=== PATIENT | male | born 1950 | race Caucasian/White ===

== ENCOUNTER 2016-09-16 03:33 | Emergency (ER) | payer MEDICARE, OTHER ==
[2016-09-16 03:51] VITALS: BP 129/81; PULSE 77; RESP 18; TEMP 97.7; O2SAT 99
--- NOTE | 2016-09-16 04:38 | ED PDOC ---
HPI: Psych/Substance Abuse Time Seen by Provider: 09/16/16 03:53 Chief Complaint (Nursing): Psychiatric Evaluation History Per: Patient, Ophthalmic Medical Technologist (Pedro - Debo) Additional Complaint(s): Pt. states he's lost interest in living. Reports he's been feeling like this for 1 month. States he was recently kicked out of his residential and does not have a place to stay. Further states that he has had an inguinal hernia for the past 3 years. Pt. reports no pain or change in size of hernia. Denies HI, hallucinations, N/V/D, diarrhea, cough, congestion. Last BM was today and was normal. Past Medical History Reviewed: Historical Data, Nursing Documentation, Vital Signs Vital Signs: Last Vital Signs Temp 97.7 F 09/16/16 03:47 Pulse 77 09/16/16 03:47 Resp 18 09/16/16 03:47 BP 129/81 09/16/16 03:47 Pulse Ox 99 09/16/16 03:47 - Medical History PMH: Anxiety, Asthma, Depression Denies: Arthritis, Diabetes, Gastritis, Hepatitis, HIV, HTN, Chronic Kidney Disease, Seizures, Sexually Transmitted Disease - Surgical History Surgical History: Appendectomy (1979) - Family History Family History: States: No Known Family Hx - Immunization History Hx Tetanus Toxoid Vaccination: No Hx Influenza Vaccination: No Hx Pneumococcal Vaccination: No - Home Medications Home Medications: Ambulatory Orders Medication Instructions Recorded No Known Home Med 09/08/16 - Allergies Allergies/Adverse Reactions: Allergies Allergy/AdvReac Type Severity Reaction Status Date / Time No Known Allergies Allergy Verified 09/08/16 19:29 Review of Systems ROS Statement: Except As Marked, All Systems Reviewed And Found Negative Psych: Positive for: Depression Physical Exam - Reviewed Nursing Documentation Reviewed: Yes Vital Signs Reviewed: Yes - Physical Exam Appears: Positive for: Well, Non-toxic, No Acute Distress Head Exam: Positive for: ATRAUMATIC, NORMAL INSPECTION, NORMOCEPHALIC Skin: Positive for: Normal Color, Warm. Negative for: Rash Eye Exam: Positive for: Normal appearance, EOMI, PERRL ENT: Positive for: Normal ENT Inspection Neck: Positive for: Normal, Painless ROM Cardiovascular/Chest: Positive for: Regular Rate, Rhythm Respiratory: Positive for: CNT, Normal Breath Sounds Gastrointestinal/Abdominal: Positive for: Normal Exam, Soft. Negative for: Tenderness, Distended Male Genital Exam: Negative for: no hernia (L inguinal hernia which is non- tender and without ecchymosis (as per patient this hernia has been the same size for 3 years)), bleeding, epididymal tenderness, erythema, high riding prostate, inguinal tenderness, lesions, scrotum tenderness (R), scrotum tenderness (L), testicular tenderness (R), testicular tenderness (L), urethral discharge Back: Positive for: Normal Inspection. Negative for: L CVA Tenderness, R CVA Tenderness Extremity: Positive for: Normal ROM Neurologic/Psych: Positive for: Alert, Oriented - ECG O2 Sat by Pulse Oximetry: 99 - Progress ED Course And Treament: Pt. evaluated by Sherri guerrier. Pt. told billet worker he is not suicidal and does not have a plan to hurt himself. Pt. was offered different residential information but refused as he states "i've been to all of them and i only like the one in [place] but they kicked me out." Disposition - Clinical Impression Clinical Impression: Inguinal hernia - Disposition Referrals: LTAC, [facility] within [facility] [Outside] Disposition: Routine/Home Disposition Time: 04:45 Condition: STABLE Instructions: Inguinal Hernia (ED) Print Language: CAMBODIAN
== END 2016-09-16 04:56 | disposition home or self-care (01) ==
LOC: H.ER 03:33
DX: K40.90 Unilateral inguinal hernia, without obstruction or gangrene, not specified as recurrent (principal); F41.9 Anxiety disorder, unspecified; J45.909 Unspecified asthma, uncomplicated

== ENCOUNTER 2016-12-27 19:02 | Inpatient (IN) | payer MEDICARE, MEDICAID ==
[2016-12-27] MEDS ORDERED: Promethazine/Cod 6.25mg-10mg/5ml Syr UD PO STA (20:42)
--- NOTE | 2016-12-27 21:28 | ED PDOC ---
HPI: Psych/Substance Abuse Time Seen by Provider: 12/27/16 19:56 Chief Complaint (Nursing): Cough, Cold, Congestion Chief Complaint (Provider): Depression and cough History Per: Patient History/Exam Limitations: no limitations Additional Complaint(s): Patient is a 66 y/o male with a past medical history of depression who was brought to the emergency department by EMS for a psych evaluation. Also complains of runny nose ongoing for several days and a dry cough ongoing for several hours. Denies chest pain, difficulty breathing, leg swelling, suicidal or homicidal ideation. PCP: none provided. Past Medical History Reviewed: Historical Data, Nursing Documentation, Vital Signs Vital Signs: Last Vital Signs Temp 98.1 F 12/27/16 19:31 Pulse 104 H 12/27/16 19:31 Resp 18 12/27/16 19:31 BP 114/79 12/27/16 19:31 Pulse Ox 99 12/27/16 19:31 - Medical History PMH: Anxiety, Asthma, Depression Denies: Arthritis, Diabetes, Gastritis, Hepatitis, HIV, HTN, Chronic Kidney Disease, Seizures, Sexually Transmitted Disease - Surgical History Surgical History: Appendectomy (1979), Hernia Repair (inguinal hernia) - Family History Family History: States: Unknown Family Hx - Social History Current smoker - smoking cessation education provided: No Ex-Smoker (has not smoked in the last 12 months): Yes Alcohol: Other (quit 1 month ago) Drugs: Denies - Immunization History Hx Tetanus Toxoid Vaccination: No Hx Influenza Vaccination: No Hx Pneumococcal Vaccination: No - Home Medications Home Medications: Ambulatory Orders Medication Instructions Recorded Albuterol/Ipratropium [Combivent 1 puff IH Q4 09/18/16 Respimat] - Allergies Allergies/Adverse Reactions: Allergies Allergy/AdvReac Type Severity Reaction Status Date / Time No Known Allergies Allergy Verified 12/27/16 19:33 Review of Systems ROS Statement: Except As Marked, All Systems Reviewed And Found Negative Cardiovascular: Negative for: Chest Pain Respiratory: Positive for: Cough (dry, several hours), Other (rhinorrhea for a couple of days). Negative for: Shortness of Breath Musculoskeletal: Negative for: Other (leg swelling) Psych: Positive for: Depression. Negative for: Suicidal ideation (or homicidal ideation) Physical Exam - Reviewed Nursing Documentation Reviewed: Yes Vital Signs Reviewed: Yes - Physical Exam Appears: Positive for: Non-toxic, No Acute Distress Head Exam: Positive for: ATRAUMATIC, NORMAL INSPECTION, NORMOCEPHALIC Skin: Positive for: Normal Color, Warm, Dry Eye Exam: Positive for: EOMI, Normal appearance, PERRL ENT: Positive for: Normal ENT Inspection Neck: Positive for: Normal, Painless ROM, Supple Cardiovascular/Chest: Positive for: Regular Rate, Rhythm. Negative for: Murmur Respiratory: Positive for: Normal Breath Sounds. Negative for: Accessory Muscle Use, Respiratory Distress Gastrointestinal/Abdominal: Positive for: Normal Exam, Soft. Negative for: Tenderness Back: Positive for: Normal Inspection Extremity: Positive for: Normal ROM. Negative for: Pedal Edema Neurologic/Psych: Positive for: Alert, Oriented (x3) - Laboratory Results Result Diagrams: 12/27/16 23:12 12/27/16 23:12 - ECG ECG: Positive for: Interpreted By Me, Viewed By Me ECG Rhythm: Positive for: Normal QRS, Normal ST Segment, Sinus Rhythm. Negative for: ST/T Changes Rate: 71 O2 Sat by Pulse Oximetry: 99 (RA) Pulse Ox Interpretation: Normal - Radiology X-Ray: Interpreted by Me, Viewed By Me X-Ray Interpretation: No Acute Disease Medical Decision Making Medical Decision Making: Time: 20:41 Initial plan: Crisis Evaluation Chest X-Ray Phenergan/Codeine 5 ml PO Reevaluation Vital signs are stable. Labs reviewed. In my opinion there are no current acute medical conditions that contraindicate the placement of this patient in a psychiatric unit. 23:59: Patient pending crisis evaluation for psychiatric unit placement. Care transferred to Dr. Orellana. Scribe Attestation: Documented by Bren Deras, acting as a scribe for Obdulio Vega MD. Provider Scribe Attestation: All medical record entries made by the Scribe were at my direction and personally dictated by me. I have reviewed the chart and agree that the record accurately reflects my personal performance of the history, physical exam, medical decision making, and the department course for this patient. I have also personally directed, reviewed, and agree with the discharge instructions and disposition. Disposition - Clinical Impression Clinical Impression: Depression - Patient ED Disposition Is Patient to be Admitted: Transfer of Care Counseled Patient/Family Regarding: Studies Performed, Diagnosis - Disposition Disposition: Transfer of Care Disposition Time: 00:00 Condition: FAIR
[2016-12-27 23:20] LABS: BASO # 0.1 K/uL (0.0-0.2); BASO % 0.8 % (0.0-2.0); EOS # 0.1 K/uL (0.0-0.7); EOS % 1.6 % (0.0-4.0); LYMPH % 11.4 % (20.0-40.0); MEAN CELL VOLUME 84.4 fl (80.0-94.0); MEAN CORPUSCULAR HEMOGLOBIN 27.3 pg (27.0-31.0); MEAN CORPUSCULAR HGB CONC 32.3 g/dL (33.0-37.0); MEAN PLATELET VOLUME 8.9 fl (7.2-11.7); MONO # 0.8 K/uL (0.0-0.8); MONO % 8.5 % (0.0-10.0); NEUT # 6.9 K/uL (1.8-7.0); NEUT % 77.7 % (50.0-75.0); NRBC % 0.1 % (0.0-0.0); RED CELL DISTRIBUTION WIDTH 13.6 % (11.5-14.5); WHITE BLOOD COUNT 8.9 K/uL (4.8-10.8)
[2016-12-27 23:32] LABS: ALCOHOL SERUM < 10 mg/dl (0-10); BLOOD UREA NITROGEN 27 mg/dl (9-20); CARBON DIOXIDE 27 mmol/L (22-30); CHLORIDE 104 mmol/L (98-107); GFR AFRICAN-AMERICAN > 60; GLUCOSE,RANDOM 90 mg/dL (75-110); POTASSIUM 4.4 MMOL/L (3.6-5.0); SODIUM 138 mmol/l (132-148)
--- NOTE | 2016-12-28 00:10 | ED PDOC ---
- Laboratory Results Result Diagrams: 12/27/16 23:12 12/27/16 23:12 - ECG O2 Sat by Pulse Oximetry: 99 (RA) Medical Decision Making Medical Decision Making: Transfer of care for pending crisis evaluation. Records reviewed. 00:09: Crisis evaluated patient and he will be admitted psychiatrically. Scribe Attestation Documented by Edwina Deras acting as a scribe for Arnie Orellana MD. Provider Attestation: All medical record entries made by the Scribe were at my direction and personally dictated by me. I have reviewed the chart and agree that the record accurately reflects my personal performance of the history, physical exam, medical decision making, and the department course for this patient. I have also personally directed, reviewed, and agree with the discharge instructions and disposition. Disposition - Clinical Impression Clinical Impression: Depression - POA Present On Arrival: None - Disposition Disposition: Admitted as In-Patient Disposition Time: 00:00 Condition: FAIR
[2016-12-28] MEDS ORDERED: Bismuth Subsalicylate 262 mg/15 ml Sus (240 ml) PO PRN (01:27)
[2016-12-28] MEDS ORDERED: Magnesium Hydroxide Susp 30 ml UD PO PRN (01:27)
[2016-12-28] MEDS ORDERED: Alum-Mag Hydrox-Simethicone Susp (30 mL) PO PRN (01:27)
--- NOTE | 2016-12-28 01:38 | PCM.BM ---
<Veronica Thacker - Last Filed: 12/28/16 01:36> Treatment Plan Problems - Problems identified on initial assessmt Hopelessness/helplessness Date Initiated: 12/28/16 Time Initiated: 01:36 Assessment reference: NA Status: Active altered sleep pattern Date Initiated: 12/28/16 Time Initiated: 01:37 Assessment reference: NA Treatment assets and liabiliti Patient Assests: adapts well, cooperative, ADL independent, negotiates basic needs, cognitively intact Patient Liabilities: live alone, financial problems, poor support system, substance abuse - Milieu Protocol Maintain good personal hygiene: daily Encourage regular showers, daily Remind patient to perform daily oral care, other Assist patient to perform ADL's (prn) Conduct patient checks and document Observation sheet: Q15 minutes Maintain personal safety: every shift Educate patient to report safety concerns to staff, every shift Monitor environment for contraband/sharps Medication safety: Monitor for expected outcome, potential side effects: every shift, Assess barriers to learning: every shift, Assess readiness for medication education: every shift Family Contact Family involvement: Famliy/SO not involved <[place]lim[place]ia [place] - Last Filed: 12/30/16 09:20> - Diagnosis (1) Depression Status: Acute Interventions: Individual and group therapy, Medication management, Psychoeducation 12/30/16 09:20 <Sury Desai - Last Filed: 12/30/16 10:55> Family Contact - Goals for Treatment Patient goals for treatment: Pt stated "I'm depressed and alot of anxiety, you know." Discharge/Continuing Care - Education Needs Education Needs: Patient Medication, Patient Diagnosis/Disease Process, Patient Coping Skills, Patient Community resources, Patient Personal Hygiene/Grooming, Patient Aftercare Safety Plan - Discharge Discharge Criteria: Free of Suicidal thoughts, Free of agitation, Normal sleep pattern, Ability to care for self, Reduction of target symptoms Discharge to:: Home, Other (Local Nursing Home Facilities) - Additional Comments 12/30/16 10:51 Pt seen and discussed and team meeting. Reason for admission discussed. Pt reported feelings of depression and anxiety and loneliness. Pt reported he is homeless and has been living on the streets. Different shelters in [place] and [facility] discussed pt stated "I rather live on the streets than in [place] shelters they are like ." Pt reported being homeless for 1 1/2 years. Pt reported no hx of prior psychiatric services. Pt reported that he is here for medical attention; pt stated "I have too much phlegm and i cant be on the streets." Tx plan discussed and reviewed with pt. Pt agreeable. Pt's medications reviewed and discussed. Pt agreeable. - Treatment Team Participation Discussed with Family/SO: No Was Patient/Family/SO present at Treatment Team Meeting: Yes
--- NOTE | 2016-12-28 08:46 | RAD ---
HISTORY: COMPARISON: No prior. TECHNIQUE: Chest PA and lateral FINDINGS: LINES AND TUBES: None. LUNG AND PLEURA: The lungs are hyperinflated and there is peribronchial thickening with chronic changes in both lungs. No focal consolidation. HEART AND MEDIASTINUM: The heart is not enlarged. The hilar and mediastinal contours are within normal limits. SKELETAL STRUCTURES: The bony structures are within normal limits for the patient's age. VISUALIZED UPPER ABDOMEN: Normal. OTHER FINDINGS: None. IMPRESSION: No active pulmonary disease. COPD.
[2016-12-28] MEDS ORDERED: Pneumococcal 23-Valent Vaccine IM ONE (10:00)
--- NOTE | 2016-12-28 12:27 | CP.PCM.CON ---
History of Present Illness - History of Present Illness History of Present Illness: Reason for Consult: per hospital protocol CC: depression HPI 66 year undomiciled old male no past medical history admitted to psych for depression. Also complains of cough and phlegm, would like his inhaler. HD STABLE, NAD. ROS: per HPI, 12 systems reviewed and negative PMH: denies PSH: denies FH: denies SH: denies tobacco, ETOH, IVDU Meds: as below Allergies: NKDA Vitals: reviewed and currently stable Exam: GEN: WDWN, alert, cooperative HEENT: NCAT, PERRL, EOMI NECK: supple, no JVD, no lymphadenopathy CARDIAC: +S1S2 RRR LUNG: CTAB No WRR ABD: SOFT NT ND BSX4 NO MASSES NO HSM EXT: +pedal pulses, equal strength NEURO: AAOx3 SKIN warm, dry PSYCH normal mood, normal affect Labs: 12/27/16 23:12 12/27/16 23:12 Assessment and Plan: Depression Management per Psychiatry Team Past Patient History - Infectious Disease Hx of Infectious Diseases: None - Past Social History Alcohol: Other (quit 1 month ago) Drugs: Denies - CARDIAC Hx Cardiac Disorders: No Hx Angina: No Hx Atrial Fibrillation: No Hx Cardia Arrhythmia: No Hx Circulatory Problems: No Hx Congestive Heart Failure: No Hx Heart Attack: No Hx Heart Murmur: No Hx Heart Transplant: No Hx Hypercholesterolemia: No Hx Hypertension: No Hx Hypotension: No Hx Internal Defibrillator: No Hx Mitral Valve Prolapse: No Hx Pacemaker: No Hx Peripheral Edema: No Hx Peripheral Vascular Disease: No - PULMONARY Hx Respiratory Disorders: Yes Hx Asthma: Yes Hx Bronchitis: No Hx Chronic Obstructive Pulmonary Disease (COPD): No Hx Emphysema: No Hx Lung Cancer: No Hx Pneumonia: No Hx Pulmonary Edema: No Hx Pulmonary Embolism: No Hx Respiratory Aspiration: No Hx Respiratory Tract Infection: No Hx Sleep Apnea: No Hx Tuberculosis: No - NEUROLOGICAL Hx Neurological Disorder: No Hx Alzheimer's Disease: No HX Cerebrovascular Accident: No Hx Dementia: No Hx Dizziness: No Hx Meningitis: No Hx Migraine: No Hx Multiple Sclerosis: No Hx Paralysis: No Hx Parkinson's Disease: No Hx Seizures: No Hx Syncope: No Hx Transient Ischemic Attacks (TIA): No Hx Vertigo: No - HEENT Hx HEENT Problems: No Hx Cataracts: No Hx Deafness: No Hx Difficulty Chewing: No Hx Epistaxis: No Hx Glaucoma: No Hx Macular Degeneration: No Hx Sinusitis: No Other/Comment: wears corrective eye wear - RENAL Hx Chronic Kidney Disease: No Hx Dialysis: No Hx Kidney Stones: No Hx Neurogenic Bladder: No Hx Pyelonephritis: No Hx Renal (Kidney) Cancer: No Hx Renal Failure: No - ENDOCRINE/METABOLIC Hx Endocrine Disorders: No Hx Adrenal Cancer: No Hx Diabetes Insipidus: No Hx Diabetes Mellitus Type 1: No Hx Diabetes Mellitus Type 2: No Hx Hyperthyroidism: No Hx Hypothyroidism: No Hx Systemic Lupus Erythematosus: No - HEMATOLOGICAL/ONCOLOGICAL Hx Blood Disorders: No Hx AIDS: No Hx Anemia: No Hx Blood Transfusions: No Hx Blood Transfusion Reaction: No Hx Bruising: No Hx Cancer: No Hx Chemotherapy: No Hx Cirrhosis: No Hx Gum Bleeding: No Hx Hemophilia: No Hx Hepatitis A: No Hx Hepatitis B: No Hx Hepatitis C: No Hx Human Immunodeficiency Virus (HIV): No Hx Leukemia: No Hx Metastesis: No Hx Shingles: No Hx Sickle Cell Disease: No Hx Unexplained Bleeding: No Hx von Willebrand's Disease: No - INTEGUMENTARY Hx Dermatological Problems: No Hx Basil Cell: No Hx Allen: No Hx Cellulitis: No Hx Eczema: No Hx Melanoma: No Hx Psoriasis: No Hx Squamous Cell: No - MUSCULOSKELETAL/RHEUMATOLOGICAL Hx Musculoskeletal Disorders: No Hx Arthritis: No Hx Back Pain: No Hx Degenerative Joint Disease: No Hx Falls: No Hx Fractures: No Hx Gout: No Hx Herniated Disk: No Hx Myasthenia Gravis: No Hx Osteoarthritis: No Hx Osteomyelitis: No Hx Osteoporosis: No Hx Rhabdomyolysis: No Hx Rheumatoid Arthritis: No Hx Spinal Stenosis: No Hx Unsteady Gait: No - GASTROINTESTINAL Hx Gastrointestinal Disorders: No Hx Bowel Surgery: No Hx Clostridium Difficile: No Hx Colitis: No Hx Colostomy: No Hx Constipation: No Hx Crohn's Disease: No Hx Diarrhea: No Hx Diverticulitis: No Hx Esophageal Varices: No Hx Fatty Liver Disease: No Hx Gall Bladder Disease: No Hx Gastritis: No Hx Gastroesophageal Reflux: No Hx Hemorrhoids: No Hx Ileostomy: No Hx Irritable Bowel: No Hx Liver Failure: No Hx Nausea: No Hx Pancreatitis: No HX Swallowing Problems: No Hx Ulcer: No Hx Vomiting: No - GENITOURINARY/GYNECOLOGICAL Hx Genitourinary Disorders: No Hx Bladder Cancer: No Hx Bladder Stone: No Hx Hematuria: No Hx Incontinence: No Hx Prostate Cancer: No Hx Prostate Problems: No Hx Reproductive Disorders: No Hx Sexually Transmitted Disorders: No Hx Urinary Tract Infection: No - PSYCHIATRIC Hx Psychophysiologic Disorder: No Hx Anxiety: No Hx Bipolar Disorder: No Hx Depression: Yes Hx Emotional Abuse: No Hx Physical Abuse: No Hx Schizophrenia: No Hx Sexual Abuse: No Hx Substance Use: Yes (cannabis) - SURGICAL HISTORY Hx Surgeries: No Hx Abdominal Aortic Aneurysm Repair: No Hx Amputation: No Hx Angiogram: No Hx Angioplasty: No Hx Appendectomy: Yes (1979) Hx Arteriovenous Shunt: No Hx Arthroscopy: No Hx Bile Duct Stent: No Hx Breast Biopsy: No Hx Cataract Extraction: No Hx Cardiac Catheterization: No Hx Carotid Endarterectomy: No Hx Section: No Hx Cholecystectomy: No Hx Coronary Artery Bypass Graft: No Hx Coronary Stent: No Hx Dilation and Curettage: No Hx Eye Surgery: No Hx Femoral-Popliteal Bypass Graft: No Hx Gastric Bypass Surgery: No Hx Herniorrhaphy: No Hx Hysterectomy: No Hx Joint Replacement: No Hx Kidney Transplant: No Hx Liver Transplant: No Hx Mastectomy: No Hx Musculoskeletal Surgery: No Hx Open Heart Surgery: No Hx Open Reduction Internal Fixation: No Hx Orthopedic Surgery: No Hx Parathyroidectomy: No Hx Penile Implant: No Hx Pulmonary Surgery: No Hx Splenectomy: No Hx Thyroidectomy: No Hx Tonsillectomy: No Hx Tubal Ligation: No Hx Valve Replacement: No Hx Vascular Surgery: No Hx Vascular Access Device: No - ANESTHESIA Hx Anesthesia: No Hx Anesthesia Reactions: No Hx Malignant Hyperthermia: No Has any member of the family had a problem w/ anesthesia?: No Meds Allergies/Adverse Reactions: Allergies Allergy/AdvReac Type Severity Reaction Status Date / Time No Known Allergies Allergy Verified 12/27/16 19:33 - Medications Medications: Current Medications Acetaminophen (Tylenol 325mg Tab) 650 mg PO Q4 PRN PRN Reason: Pain, moderate (4-7) Al Hydrox/Mg Hydrox/Simethicone (Maalox Plus 30 Ml) 30 ml PO Q4 PRN PRN Reason: Dyspepsia Bismuth Subsalicylate (Pepto-Bismol) 524 mg PO Q4 PRN PRN Reason: Diarrhea Home Med (Albuterol/Ipratropium [Combivent Respimat]) 1 puff IH Q4 SHLOMO Lorazepam (Ativan) 0.5 mg PO HS PRN PRN Reason: Insomnia Stop: 01/11/17 01:28 Lorazepam (Ativan) 0.5 mg PO Q6 PRN PRN Reason: Anixety/Agitation Stop: 01/11/17 01:28 Magnesium Hydroxide (Milk Of Magnesia) 30 ml PO HS PRN PRN Reason: Constipation Results - Vital Signs Recent Vital Signs: Last Vital Signs Temp 97.9 F 12/28/16 06:00 Pulse 66 12/28/16 06:00 Resp 18 12/28/16 06:00 BP 101/72 12/28/16 06:00 Pulse Ox 100 12/28/16 00:34 - Labs Result Diagrams: 12/27/16 23:12 12/27/16 23:12
[2016-12-28] MEDS ORDERED: Albuterol HFA 90 mcg/actuation (8 g) INH PRN (13:15)
[2016-12-28] MEDS: Patient's Own Med (Albuterol/Ipratropium [Combivent Respimat] 1 PUFF) IH SCH ×4 (14:02→21:08)
--- NOTE | 2016-12-28 14:26 | PCM.PSYCH ---
Initial Psychiatric Evaluation - Initial Psychiatric Evaluation Chief Complaint (in patient's own words): came to emergency was feeling depressed and was thinking about my life Patient's Reaction to Hospitalization: verbally agreeable to plan to be admitted and remain on voluntary basis History of Present Illness and Precipitating Events: pt was admitted to 3ns from ER at [facility] after presenting by ems for evaluation of depressed mood and suicidal ideations. Reports that was feeling overwhelmed thought that he did not have anything to live for and was afraid that if he were not to be admitted that he would take his life. Pt reports he came to [facility] from [place] two years ago because "there are better programs her and disability". Reports has been staying in various shelters ([place] or [place]), has no support, denies previous psychiatric treatment. Reports that drinks beer once in "a while", denies having drinking problem or using drugs. Reports has smoked for many years and sees Dr. Harley ([address] in [place]) for pulmonology and "uses combivent" for COPD. Reports having "nasal congestion and cold for several days". Denies fevers chills sweats or notable weight. Smokes 1 pk day for many years. Current Medications: Active Medications Generic Name Dose Route Start Last Admin Trade Name Freq PRN Reason Stop Dose Admin Acetaminophen 650 mg 12/28/16 01:27 Tylenol 325mg Tab PO Q4 PRN Pain, moderate (4-7) Al Hydrox/Mg Hydrox/Simethicone 30 ml 12/28/16 01:27 Maalox Plus 30 Ml PO Q4 PRN Dyspepsia Albuterol 2 puff 12/28/16 13:15 Ventolin Hfa 90 Mcg/Actuation (8 G) INH RQ4 PRN Shortness of Breath Bismuth Subsalicylate 524 mg 12/28/16 01:27 Pepto-Bismol PO Q4 PRN Diarrhea Home Med 1 puff 12/28/16 13:00 12/28/16 14:02 Albuterol/Ipratropium [Combivent Respimat] IH Not Given Q4 SHLOMO Lorazepam 0.5 mg 12/28/16 01:27 Ativan PO 01/11/17 01:28 HS PRN Insomnia Lorazepam 0.5 mg 08/26/17 01:27 Ativan PO 01/11/17 01:28 Q6 PRN Anixety/Agitation Magnesium Hydroxide 30 ml 12/28/16 01:27 Milk Of Magnesia PO HS PRN Constipation Past Psychiatric History - Past Psychiatric History Prior Professional Help: denies Nature of Treatment: denies History of Abuse: denies History of ETOH/Drug Use: reports social drinking as "several cans of beer a couple times week". denies being told or feeling like he has etoh problem -CAGE obtained Pertinent Medical Hx (Current Medical&Sleep Prob, Allergies): Allergies Allergy/AdvReac Type Severity Reaction Status Date / Time No Known Allergies Allergy Verified 12/27/16 19:33 Albuterol/Ipratropium [Combivent Respimat] 1 puff IH Q4 09/18/16 Review of Systems - EENT Additional comments: nasal congestion with clear discharge reported reports has history of seasonal allergies - Respiratory Additional comments: reports cough increased am relates to reported history copd somewhat decreases with passage of day - Psychiatric Psychiatric: Anhedonia, Hopelessness, Suicidal Ideation Mental Status Examination - Personal Presentation Personal Presentation: Looks older than stated age - Affect Affect: Constricted - Motor Activity Motor Activity: Psychomotor Retardation - Reliability in Providing Information Reliability in Providing Information: Fair - Speech Additional comments: under productive - Mood Mood: Depressed - Formal Thought Process Formal Thought Process: No Impairment - Obsessions/Compulsions Obsessions: No Compulsions: No - Cognitive Functions Orientation: Person, Place, Situation, Time Sensorium: Alert Attention/Concentration: Attentive Judgement: Imparied, as evidence by: Other Memory: Remote impaired as evidenced by: Other - Risk Risk: Suicidal DSM 5 DX - DSM 5 DSM 5 Diagnosis: Depression NOS Subtance use ETOH, Nicotine HX COPD HX of seasonal allergiesl - Recommended/Plan of Treatment Treatment Recommendations and Plan of Treatment: admission per attending vital signs and clinical observation per protocol and per clinical status prns per unit protocol wellbutrin sr 150mg po day (first dose today) complains of anhedonia hospitalist consult discharge planning in progress Projected ELOS: 3-5 dats Prognosis: guarded Discharge Plan and Discharge Criteria: safety - Smoking Cessation Smoking Cessation Initiated: Yes
[2016-12-28] MEDS: buPROPion SR 150 MG TABLET PO SCH (17:23)
[2016-12-29 06:30] VITALS: O2SAT 99
[2016-12-29] MEDS: buPROPion SR 150 MG TABLET PO SCH (08:51)
[2016-12-29] MEDS: guaiFENesin 100 mg/5 ml Syrup UD PO PRN (08:51)
[2016-12-29] MEDS: Patient's Own Med (Albuterol/Ipratropium [Combivent Respimat] 1 PUFF) IH SCH ×3 (08:52→16:52)
[2016-12-29 12:26] LABS: URINE BILIRUBIN NEGATIVE (NEGATIVE); URINE BLOOD NEGATIVE (NEGATIVE); URINE COLOR YELLOW (YELLOW); URINE GLUCOSE (UA) NEG (Normal); URINE KETONE NEGATIVE (NEGATIVE); URINE LEUKOCYTE ESTERASE NEG Leu/uL (Negative); URINE PROTEIN 30 mg/dL (NEGATIVE); URINE UROBILINOGEN 0.2-1.0 mg/dL (0.2-1.0); WBC URINE 1 /hpf (0-5)
--- NOTE | 2016-12-29 18:49 | PCM.PYCHPN ---
Psychiatric Progress Note - Psychiatric Progress Note Patient seen today, length of contact: chart reviewed case discussed with team Patient Chief Complaint: came to emergency was feeling depressed and was thinking about my life Problems Identified/Issues Discussed: alteration in mood alteration in coping substance use Medical Problems: per chart Diagnostic Results: per psychiatry per medicine per nursing per social work DSM 5 Symptoms Update: alteration in mood substance use Medical Record Reviewed: Yes Consults ordered or reviewed: pt being followed by hospitalist Mental Status Examination - Cognitive Function Orientation: Person, Place, Situation, Time Attention: WNL Concentration: WNL Association: WNL Fund of Knowledge: WNL Decription of patient's judgement and insights: somewhat impaired - Mood Mood: Depressed - Affect Affect: Constricted - Formal Thought Process Formal Thought Process: No Impairment - Homicidal Ideation Homicidal Ideation: No Goal/Treatment Plan - Goal/Treatment Plan Progress Toward Problem(s) and Goals/Treatment Plan: inpt milieu vital signs and clinical observation per protocol and per clinical status prns per unit protocol continue wellbutrin sl 150mg po day team may consider increase discharge planning in progress Estimated Date of D/C: 12/31/16 - Smoking Cessation Smoking Cessation Initiated: No Reason for not providing: pt deferred
[2016-12-30] MEDS: Patient's Own Med (Albuterol/Ipratropium [Combivent Respimat] 1 PUFF) IH SCH ×7 (07:30→21:15)
[2016-12-30] MEDS: buPROPion SR 150 MG TABLET PO SCH (08:31)
[2016-12-30] MEDS: guaiFENesin 100 mg/5 ml Syrup UD PO PRN ×2 (08:33→16:38)
--- NOTE | 2016-12-30 09:24 | PCM.PYCHPN ---
Psychiatric Progress Note - Psychiatric Progress Note Patient seen today, length of contact: Patient evaluated, case discussed with team, chart reviewed, 35 min Patient Chief Complaint: "I'm okay" Problems Identified/Issues Discussed: Patient reports that his depressive symptoms are improving. No current suicidal ideation/plan/intent. He reports somatic complaints of having a cold. Patient is calm/cooperative. He is encouraged to get out of bed and participate in groups. No adverse effects to Wellbutrin noted. Medication Change: No Medical Record Reviewed: Yes Mental Status Examination - Cognitive Function Orientation: Person, Place, Situation, Time Memory: Intact Attention: WNL Concentration: WNL Association: [facility] Fund of Knowledge: [facility] Decription of patient's judgement and insights: Fair I/J - Mood Mood: Depressed - Affect Affect: Constricted - Speech Speech: Appropriate - Formal Thought Process Formal Thought Process: No Impairment Psychotic Thoughts and Behaviors: No AH/VH/paranoia/delusions - Suicidal Ideation Suicidal Ideation: No - Homicidal Ideation Homicidal Ideation: No Goal/Treatment Plan - Goal/Treatment Plan Need for Continued Stay: Remain at risks for inpatient hospitalization, Severe depression anxiety Progress Toward Problem(s) and Goals/Treatment Plan: Depressive Disorder; patient is improving clinically, no current suicidal ideation/plan/intent -Continue Wellbutrin SR 150 mg PO Daily -Individual and group therapy -Disposition planning -Medicine consult Estimated Date of D/C: 12/31/16 - Smoking Cessation Smoking Cessation Initiated: Yes
--- NOTE | 2016-12-30 11:11 | CARD ---
APPROVED REPORT EKG Measurement Heart [id number] <Conclusion> Normal sinus rhythm Normal ECG
[2016-12-31 05:53] VITALS: BP 102/68; PULSE 67; RESP 19; TEMP 97.5
[2016-12-31] MEDS: Patient's Own Med (Albuterol/Ipratropium [Combivent Respimat] 1 PUFF) IH SCH ×3 (06:20→08:40)
[2016-12-31] MEDS: buPROPion SR 150 MG TABLET PO SCH (08:41)
--- NOTE | 2016-12-31 11:00 | PCM.PYCHDC ---
Mental Status Examination - Mental Status Examination Orientation: Person, Place, Situation, Time Memory: Intact Mood: Neutral Affect: Broad Speech: Appropriate Attention: WNL Concentration: WNL Association: WNL Fund of Knowledge: WNL Formal Thought Process: No Impairment Description of patient's judgement and insight: Fair I/J Psychotic Thoughts and Behaviors: No AH/VH/paranoia/delusions Suicidal Ideation: No Current Homicidal Ideation?: No Discharge Summary - Discharge Note Reason for Hospitalization: As per initial HPI: pt was admitted to 3ns from ER at [facility] (formerly [facility]) after presenting by ems for evaluation of depressed mood and suicidal ideations. Reports that was feeling overwhelmed thought that he did not have anything to live for and was afraid that if he were not to be admitted that he would take his life. Pt reports he came to [facility] from [place] two years ago because "there are better programs her and disability". Reports has been staying in various shelters ([place] or [place]), has no support, denies previous psychiatric treatment. Reports that drinks beer once in "a while", denies having drinking problem or using drugs. Reports has smoked for many years and sees Dr. Harley ([address] in [place]) for pulmonology and "uses combivent" for COPD. Reports having "nasal congestion and cold for several days ". Denies fevers chills sweats or notable weight. Smokes 1 pk day for many years. Psychiatric History (includes Medical, Family, Personal Hx): denies Consultations:: List each consultation separately and include: 1. Reason for request. 2. Findings. 3. Follow-up Consultations: Medicine consult Summary of Hospital Course include:: 1. Description of specific treatment plan utilized for patients during their course of treatmen. 2. Summarize the time- course for resolution of acute symptoms and/or regressed behaviors. 3. Describe issues identified and worked on during hospitalization. 4. Describe medication utilized. 5. Describe medical problems identified and treated. 6. Reassessment of suicide risk Summary of Hospital Course: Patient was admitted to the psychiatry unit. He was started on Wellbutrin SR 150 mg PO Daily. He was evaluated by medicine consult for chronic COPD. Patient has not expressed suicidal ideation w/ plan to resume writer. Patient at this time seems to be exaggerating his symptoms in order to prolong hospitalization due to being homeless. He is not interested in aftercare and has requested to stay in the hospital for a prolonged period of time. It was explained to the patient that the hospital is for acute stabilization, not chronic housing. Patient is currently psychiatrically stable to be discharged and is evaluated to not be an acute danger to self or others. - Diagnosis (1) Depression Current Visit: Yes Status: Acute - Final Diagnosis (DSM 5) Condition upon Discharge: STABLE DSM 5: Depressive Disorder Disposition: HOME/ ROUTINE Follow-up Treatment Plan: Depressive Disorder; patient is currently psychiatrically stable for discharge -Continue Wellbutrin SR 150 mg PO Daily -Patient refused aftercare -Patient informed to call 911 or go to the ED if he has suicidal ideation Prescriptions/Medication Reconciliation: Albuterol HFA [Ventolin HFA 90 mcg/actuation (8 g)] 2 puff INH RQ4 PRN #1 inhaler PRN Reason: Shortness Of Breath Albuterol/Ipratropium [Combivent Respimat] 1 puff IH Q4 #1 buPROPion SR [Wellbutrin SR 150 MG] 150 mg PO DAILY #30 tab - Smoking Cessation Smoking Cessation Medication prescribed: Yes Reason for not providing: Given Nicotine patch while inpatient, refuses prescription - Antipsychotic Medications Pt discharged on 2 or more routine antipsychotic medications: No
== END 2016-12-31 13:15 | disposition home or self-care (01) | DRG 881 ==
LOC: H.ER 19:02 → H.ERHOLD 12-28 00:07 → H.STEP 12-28 01:06
PROVIDERS: ADMIT Psychiatry & Neurology Psychiatry; ATTEND Psychiatry & Neurology Psychiatry
PROC: GZ51ZZZ Individual Psychotherapy, Behavioral (ICD-10-PCS; principal; 2016-12-28)
DX: F32.9 Major depressive disorder, single episode, unspecified (principal); R45.851 Suicidal ideations; J44.9 Chronic obstructive pulmonary disease, unspecified; F41.9 Anxiety disorder, unspecified; Z59.0 Homelessness; Z87.891 Personal history of nicotine dependence; Z90.49 Acquired absence of other specified parts of digestive tract; R09.81 Nasal congestion

== ENCOUNTER 2017-04-12 21:33 | Emergency (ER) | payer MEDICAID, MEDICARE, OTHER ==
[2017-04-12 21:46] VITALS: BP 133/80; PULSE 95; RESP 18; TEMP 97.8; O2SAT 97
[2017-04-12] MEDS ORDERED: Sodium Chloride 0.9% 1,000 ML IV STA (22:01)
--- NOTE | 2017-04-12 22:04 | ED PDOC ---
HPI:Nausea, Vomiting, Diarrhea Time Seen by Provider: 04/12/17 21:51 Chief Complaint (Nursing): GI Problem Chief Complaint (Provider): Diarrhea History Per: Patient History/Exam Limitations: no limitations Onset/Duration Of Symptoms: Days (4) Current Symptoms Are (Timing): Still Present Additional Complaint(s): Pt. with diarrhea, nonbloody. No nausea, vomit, abd pain, weakness, new food or drinks. Is homeless and states he is anxious and has depression. Wants to talk to the psychiatrist. Denies suicidal ideation. No back pain, chest pain, dyspnea. Past Medical History Reviewed: Nursing Documentation, Vital Signs Vital Signs: Last Vital Signs Temp 97.8 F 04/12/17 21:42 Pulse 95 H 04/12/17 21:42 Resp 18 04/12/17 21:42 BP 133/80 04/12/17 21:42 Pulse Ox 97 04/12/17 21:42 - Medical History PMH: Anxiety, Asthma, Depression Denies: Alzheimer's Disease, Anemia, Arthritis, Atrial Fibrillation, Bipolar Disorder, Bronchitis, Cardia Arrhythmia, CHF, COPD, Crohn's Disease, Dementia, Diabetes, Diverticulitis, Emphysema, Fractures, Gastritis, Gall Bladder Disease , Hepatitis, HIV, HTN, Hypercholesterolemia, Hyperthyroidism, Hypothyroidism, Kidney Stones, Migraine, Mitral Valve Prolapse, Multiple Sclerosis, Osteoporosis , Pancreatitis, Parkinson's Disease, Peripheral Edema, Personality Disorder, Pneumonia, Pulmonary Embolism, Chronic Kidney Disease, Rheumatoid Arthritis, Schizophrenia, Seizures, Sickle Cell Disease, Sexually Transmitted Disease, Sleep Apnea, TIA - Surgical History Surgical History: Appendectomy (1979), Hernia Repair (inguinal hernia) Denies: CABG, Carotid Endarterectomy, Cholecystectomy, Coronary Stent, Pacemaker, Tonsillectomy - Family History Family History: States: Unknown Family Hx - Living Arrangements Living Arrangements: Other (homeless) - Social History Current smoker - smoking cessation education provided: No Alcohol: None Drugs: Denies - Immunization History Hx Tetanus Toxoid Vaccination: No Hx Influenza Vaccination: No Hx Pneumococcal Vaccination: No - Home Medications Home Medications: Ambulatory Orders Medication Instructions Recorded Albuterol HFA [Ventolin HFA 90 2 puff INH RQ4 PRN #1 inhaler 12/31/16 mcg/actuation (8 g)] Albuterol/Ipratropium [Combivent 1 puff IH Q4 #1 12/31/16 Respimat] buPROPion SR [Wellbutrin SR 150 MG] 150 mg PO DAILY #30 tab 12/31/16 - Allergies Allergies/Adverse Reactions: Allergies Allergy/AdvReac Type Severity Reaction Status Date / Time No Known Allergies Allergy Verified 12/27/16 19:33 Review of Systems ROS Statement: Except As Marked, All Systems Reviewed And Found Negative Gastrointestinal: Positive for: Diarrhea Psych: Positive for: Anxiety, Depression Physical Exam - Reviewed Nursing Documentation Reviewed: Yes Vital Signs Reviewed: Yes - Physical Exam Appears: Positive for: Non-toxic, No Acute Distress Head Exam: Positive for: ATRAUMATIC, NORMAL INSPECTION, NORMOCEPHALIC Skin: Positive for: Normal Color, Warm, DRY Eye Exam: Positive for: EOMI, Normal appearance, PERRL ENT: Positive for: Normal ENT Inspection Neck: Positive for: Normal, Painless ROM Cardiovascular/Chest: Positive for: Regular Rate, Rhythm Respiratory: Positive for: CNT, Normal Breath Sounds Gastrointestinal/Abdominal: Positive for: Normal Exam, Bowel Sounds, Soft. Negative for: Tenderness Back: Positive for: Normal Inspection. Negative for: L CVA Tenderness, R CVA Tenderness Extremity: Positive for: Normal ROM. Negative for: Tenderness, Pedal Edema Neurologic/Psych: Positive for: Alert, Oriented - Laboratory Results Result Diagrams: 04/12/17 22:29 04/12/17 22:29 Interpretation Of Abn Labs: 31 bun similar to old - ECG O2 Sat by Pulse Oximetry: 97 Pulse Ox Interpretation: Normal - Progress ED Course And Treament: 2318: Stable. AAOx3. Crisis eval pending. Tolerated PO. Ambulating with no issues. 2324: Crisis saw pt. Does not meet criteria for admit. Fu outpt. Disposition - Clinical Impression Clinical Impression: Diarrhea, Depression - Patient ED Disposition Is Patient to be Admitted: No Counseled Patient/Family Regarding: Studies Performed, Diagnosis, Need For Followup - Disposition Referrals: [facility] [Outside] - 04/14/17 Disposition: Routine/Home Disposition Time: 23:25 Condition: FAIR Additional Instructions: Return if not better in 3 days. Instructions: Depression (ED), Acute Diarrhea (ED)
[2017-04-12 22:43] LABS: BASO # 0.1 K/uL (0.0-0.2); BASO % 0.8 % (0.0-2.0); EOS # 0.1 K/uL (0.0-0.7); HEMATOCRIT 42.9 % (35.0-51.0); LYMPH # 0.8 K/uL (1.0-4.3); LYMPH % 8.2 % (20.0-40.0); MEAN CELL VOLUME 84.9 fl (80.0-94.0); MEAN CORPUSCULAR HEMOGLOBIN 26.9 pg (27.0-31.0); MEAN CORPUSCULAR HGB CONC 31.7 g/dL (33.0-37.0); MEAN PLATELET VOLUME 8.5 fl (7.2-11.7); MONO # 0.8 K/uL (0.0-0.8); MONO % 9.1 % (0.0-10.0); NEUT # 7.5 K/uL (1.8-7.0); NEUT % 80.9 % (50.0-75.0); PLATELET COUNT 246 K/uL (130-400); RED CELL DISTRIBUTION WIDTH 13.3 % (11.5-14.5); WHITE BLOOD COUNT 9.3 K/uL (4.8-10.8)
[2017-04-12 22:52] LABS: BLOOD UREA NITROGEN 31 mg/dl (9-20); CALCIUM 9.1 mg/dL (8.4-10.2); CARBON DIOXIDE 30 mmol/L (22-30); CHLORIDE 101 mmol/L (98-107); GFR AFRICAN-AMERICAN > 60; GLUCOSE,RANDOM 67 mg/dL (75-110); POTASSIUM 4.1 MMOL/L (3.6-5.0); SODIUM 140 mmol/l (132-148)
[2017-04-12 23:32] LABS: NEUTROPHIL 83 % (42-75); REACTIVE LYMPHOCYTES 1 % (0-0); TOTAL CELLS COUNTED 100
== END 2017-04-12 23:36 | disposition home or self-care (01) ==
LOC: H.ER 21:33
DX: R19.7 Diarrhea, unspecified (principal); F32.9 Major depressive disorder, single episode, unspecified; F41.9 Anxiety disorder, unspecified; J45.909 Unspecified asthma, uncomplicated; Z59.0 Homelessness
CPT/HCPCS: 80048; 85025; 96360; 99282; J7040

== ENCOUNTER 2017-07-23 20:11 | Emergency (ER) | payer MEDICARE, MEDICAID ==
[2017-07-23 20:17] VITALS: O2SAT 96
[2017-07-23] MEDS ORDERED: Albuterol-Ipratrop 3 mg / 0.5 (3 ml) UD ONE (20:39)
[2017-07-23] MEDS ORDERED: Albuterol-Ipratrop 3 mg / 0.5 (3 ml) UD INH STA ×2 (20:40→20:42)
--- NOTE | 2017-07-23 21:02 | ED PDOC ---
HPI: SOB/CHF/COPD Time Seen by Provider: 07/23/17 20:27 Chief Complaint (Nursing): Chest Pain Chief Complaint (Provider): Shortness of breath History Per: Patient History/Exam Limitations: no limitations Associated Symptoms: denies: Fever, Chills, Chest Pain Additional Complaint(s): 67yo homeless male with history of COPD, presents to ED with complaints of shortness of breath not relieved with use of his inhaler at home. He is requesting duonebs for relief of his symptoms. Patient denies any chest pain, fever, chills. No other complaints. Past Medical History Reviewed: Historical Data, Nursing Documentation, Vital Signs Vital Signs: Last Vital Signs Temp 98 F 07/23/17 21:35 Pulse 74 07/23/17 21:35 Resp 18 07/23/17 21:35 BP 116/58 L 07/23/17 21:35 Pulse Ox 96 07/23/17 21:40 - Medical History PMH: Anxiety, Asthma, Depression, Pneumonia Denies: Alzheimer's Disease, Anemia, Arthritis, Atrial Fibrillation, Bipolar Disorder, Bronchitis, Cardia Arrhythmia, CHF, COPD, Crohn's Disease, Dementia, Diabetes, Diverticulitis, Emphysema, Fractures, Gastritis, Gall Bladder Disease , Hepatitis, HIV, HTN, Hypercholesterolemia, Hyperthyroidism, Hypothyroidism, Kidney Stones, Migraine, Mitral Valve Prolapse, Multiple Sclerosis, Osteoporosis , Pancreatitis, Parkinson's Disease, Peripheral Edema, Personality Disorder, Pulmonary Embolism, Chronic Kidney Disease, Rheumatoid Arthritis, Schizophrenia , Seizures, Sickle Cell Disease, Sexually Transmitted Disease, Sleep Apnea, TIA - Surgical History Surgical History: Appendectomy (1979), Hernia Repair (inguinal hernia) Denies: CABG, Carotid Endarterectomy, Cholecystectomy, Coronary Stent, Pacemaker, Tonsillectomy - Family History Family History: States: Unknown Family Hx - Immunization History Hx Tetanus Toxoid Vaccination: No Hx Influenza Vaccination: No Hx Pneumococcal Vaccination: No - Home Medications Home Medications: Ambulatory Orders Medication Instructions Recorded Albuterol HFA [Ventolin HFA 90 2 puff INH RQ4 PRN #1 inhaler 12/31/16 mcg/actuation (8 g)] Albuterol/Ipratropium [Combivent 1 puff IH Q4 #1 12/31/16 Respimat] buPROPion SR [Wellbutrin SR 150 MG] 150 mg PO DAILY #30 tab 12/31/16 Albuterol Sulfate [Proair Hfa] 0.09 mg IH Q6 PRN #1 inh 07/23/17 predniSONE [predniSONE Tab] 60 mg PO QAM #12 tab 07/23/17 - Allergies Allergies/Adverse Reactions: Allergies Allergy/AdvReac Type Severity Reaction Status Date / Time No Known Allergies Allergy Verified 07/23/17 20:14 Review of Systems ROS Statement: Except As Marked, All Systems Reviewed And Found Negative Constitutional: Negative for: Fever, Chills Cardiovascular: Negative for: Chest Pain Respiratory: Positive for: Shortness of Breath Physical Exam - Reviewed Nursing Documentation Reviewed: Yes Vital Signs Reviewed: Yes - Physical Exam Appears: Positive for: No Acute Distress Head Exam: Positive for: ATRAUMATIC, NORMAL INSPECTION, NORMOCEPHALIC Skin: Positive for: Normal Color Eye Exam: Positive for: Normal appearance Neck: Positive for: Supple Cardiovascular/Chest: Positive for: Regular Rate, Rhythm Respiratory: Positive for: Decreased Breath Sounds (decreased air entry) Gastrointestinal/Abdominal: Positive for: Normal Exam, Soft. Negative for: Tenderness Extremity: Positive for: Normal ROM Neurologic/Psych: Positive for: Alert, Oriented - ECG O2 Sat by Pulse Oximetry: 96 (RA) Pulse Ox Interpretation: Normal Medical Decision Making Medical Decision Making: Impression: 67yo male with shortness of breath in setting of known COPD Plan: -- Duoneb 3ml INH x2 -- Tylenol 650 mg PO -- Prednisone 60 mg PO Scribe Attestation: Documented by Bea Leonardo, acting as a scribe for Arnie Orellana MD Provider Scribe Attestation: All medical record entries made by the Scribe were at my direction and personally dictated by me. I have reviewed the chart and agree that the record accurately reflects my personal performance of the history, physical exam, medical decision making, and the department course for this patient. I have also personally directed, reviewed, and agree with the discharge instructions and disposition. Disposition - Clinical Impression Clinical Impression: COPD (chronic obstructive pulmonary disease) - Disposition Disposition Time: 21:00 Condition: STABLE Prescriptions: Albuterol Sulfate [Proair Hfa] 0.09 mg IH Q6 PRN #1 inh PRN Reason: Shortness Of Breath predniSONE [predniSONE Tab] 60 mg PO QAM #12 tab Instructions: Chronic Obstructive Pulmonary Disease (COPD), Including Emphysema Forms: [employer] (Turkmen)
[2017-07-23 21:29] VITALS: BP 116/58; PULSE 74; RESP 18; TEMP 98
--- NOTE | 2017-07-24 08:57 | CARD ---
APPROVED REPORT EKG Measurement Heart [id number] <Conclusion> Normal sinus rhythm Normal ECG
== END 2017-07-23 21:50 | disposition home or self-care (01) ==
LOC: H.ER 20:11
DX: J44.9 Chronic obstructive pulmonary disease, unspecified (principal); Z87.891 Personal history of nicotine dependence

== ENCOUNTER 2018-09-14 00:36 | Inpatient (IN) | payer OTHER ==
[2018-09-14 00:44] VITALS: O2SAT 100
--- NOTE | 2018-09-14 01:42 | ED PDOC ---
HPI: General Adult Time Seen by Provider: 09/14/18 00:44 Chief Complaint (Nursing): Respiratory Distress Chief Complaint (Provider): Hernia History Per: Patient, Mosaicist (LOBITO Vasquez [id number]) History/Exam Limitations: no limitations Onset/Duration Of Symptoms: Persistent Current Symptoms Are (Timing): Still Present Additional Complaint(s): 68yo male, comes to ER reporting he has a left sided inguinal hernia which has been increasing in size. Patient states he is concerned as it is twice the size of his wrist. He additionally states he has been having increased urinary frequency. He denies any dysuria, hematuria or other complaints. Patient finally reports he feels suicidal due to the persistence of his medical symptoms. He denies any homicidal ideation, hallucinations. He denies any chest pain. No additional complaints offered at this time. PMD: none provided Past Medical History Reviewed: Historical Data, Nursing Documentation, Vital Signs Vital Signs: Last Vital Signs Temp 97.6 F 09/14/18 00:41 Pulse 100 H 09/14/18 00:41 Resp 18 09/14/18 00:41 BP 137/88 09/14/18 00:41 Pulse Ox 100 09/14/18 00:41 Primary Care Provider: FAMILY PROVIDER,NO - Medical History PMH: Anxiety, Asthma, Depression, Pneumonia Denies: Alzheimer's Disease, Anemia, Arthritis, Atrial Fibrillation, Bipolar Disorder, Bronchitis, Cardia Arrhythmia, CHF, COPD, Crohn's Disease, Dementia, Diabetes, Diverticulitis, Emphysema, Fractures, Gastritis, Gall Bladder Disease, Hepatitis, HIV, HTN, Hypercholesterolemia, Hyperthyroidism, Hypothyroidism, Kidney Stones, Migraine, Mitral Valve Prolapse, Multiple Sclerosis, Osteoporosis, Pancreatitis, Parkinson's Disease, Peripheral Edema, Personality Disorder, Pulmonary Embolism, Chronic Kidney Disease, Rheumatoid Arthritis, Schizophrenia, Seizures, Sickle Cell Disease, Sexually Transmitted Disease, Sleep Apnea, TIA - Surgical History Surgical History: Appendectomy (1979), Hernia Repair (inguinal hernia) Denies: CABG, Carotid Endarterectomy, Cholecystectomy, Coronary Stent, Pacemaker, Tonsillectomy - Family History Family History: States: Unknown Family Hx - Social History Current smoker - smoking cessation education provided: No Alcohol: None Drugs: Denies - Immunization History Hx Tetanus Toxoid Vaccination: No Hx Influenza Vaccination: No Hx Pneumococcal Vaccination: No - Home Medications Home Medications: Ambulatory Orders Medication Instructions Recorded Albuterol/Ipratropium [Combivent 1 puff IH Q4 PRN 08/29/17 Respimat] Fluticasone Propionate [Flonase] 1 spray RUPESH DAILY 09/14/18 - Allergies Allergies/Adverse Reactions: Allergies Allergy/AdvReac Type Severity Reaction Status Date / Time No Known Allergies Allergy Verified 02/18/18 15:20 Review of Systems ROS Statement: Except As Marked, All Systems Reviewed And Found Negative Cardiovascular: Negative for: Chest Pain Genitourinary Male: Positive for: Frequency, Other (hernia) Psych: Positive for: Suicidal ideation Physical Exam - Reviewed Nursing Documentation Reviewed: Yes Vital Signs Reviewed: Yes - Physical Exam Appears: Positive for: Non-toxic Head Exam: Positive for: NORMAL INSPECTION Skin: Positive for: Normal Color Eye Exam: Positive for: Normal appearance ENT: Positive for: Normal ENT Inspection Neck: Positive for: Supple Cardiovascular/Chest: Positive for: Regular Rate, Rhythm. Negative for: T achycardia Respiratory: Positive for: Normal Breath Sounds. Negative for: Respiratory Distress Gastrointestinal/Abdominal: Positive for: Soft, Hernia (left inguinal hernia, reducible). Negative for: Tenderness, Guarding, Rebound Back: Positive for: Normal Inspection Extremity: Positive for: Normal ROM Neurological/Psych: Positive for: Awake, Alert - Laboratory Results Result Diagrams: 09/14/18 02:11 09/14/18 02:11 - ECG O2 Sat by Pulse Oximetry: 100 (RA) Pulse Ox Interpretation: Normal Medical Decision Making Medical Decision Making: Impression: Inguinal hernia, urinary frequency, CHRONIC PROBLEMS. including suicidal ideation Plan: -- Labs -- Urinalysis -- UDS pt placed on 1-1 labs, ekg urine Patient refused his EKG stating "I don't want wires around my heart." -- 1:1 observation started for patient safety 0230 Labs and urinalysis reviewed, no clinically significant abnormalities 0242 Patient seen and evaluated by crisis team. Per Dr. Beach, patient to be admitted due to depression. CXR ordered. Troponin I ordered. troponin negative 310 EKG normal sinus rhythm @ 73 (pt finally agreed to the ekg and blood work) Troponin results reviewed and are within normal limits Patient medically cleared for psychiatric admission Scribe Attestation: Documented by Bea Leonardo, acting as a scribe for Lynne Bashir MD. Provider Scribe Attestation: All medical record entries made by the Scribe were at my direction and personally dictated by me. I have reviewed the chart and agree that the record accurately reflects my personal performance of the history, physical exam, medical decision making, and the department course for this patient. I have also personally directed, reviewed, and agree with the discharge instructions and disposition. Disposition - Clinical Impression Clinical Impression: Depression - Patient ED Disposition Is Patient to be Admitted: Yes Counseled Patient/Family Regarding: Studies Performed, Diagnosis - Disposition Disposition Time: 02:30 Condition: STABLE
[2018-09-14 02:28] LABS: BASO # 0.1 K/uL (0.0-0.2); BASO % 0.7 % (0.0-2.0); EOS # 0.1 K/uL (0.0-0.7); EOS % 1.8 % (0.0-4.0); HEMOGLOBIN 13.3 g/dL (12.0-18.0); LYMPH # 1.1 K/uL (1.0-4.3); LYMPH % 15.4 % (20.0-40.0); MEAN CELL VOLUME 84.9 fl (80.0-94.0); MEAN CORPUSCULAR HEMOGLOBIN 27.7 pg (27.0-31.0); MEAN CORPUSCULAR HGB CONC 32.6 g/dL (33.0-37.0); MEAN PLATELET VOLUME 8.9 fl (7.2-11.7); MONO # 0.9 K/uL (0.0-0.8); MONO % 12.2 % (0.0-10.0); NEUT # 5.1 K/uL (1.8-7.0); NEUT % 69.9 % (50.0-75.0); RBC 4.81 Mil/uL (4.40-5.90); RED CELL DISTRIBUTION WIDTH 13.9 % (11.5-14.5); WHITE BLOOD COUNT 7.2 K/uL (4.8-10.8)
[2018-09-14 02:28] LABS: SQUAMOUS EPITHIAL < 1 /hpf (0-5); URINE BILIRUBIN NEGATIVE (NEGATIVE); URINE BLOOD NEGATIVE (NEGATIVE); URINE CLARITY CLEAR (Clear); URINE COLOR YELLOW (YELLOW); URINE GLUCOSE (UA) NEG (NEGATIVE); URINE LEUKOCYTE ESTERASE NEG Leu/uL (Negative); URINE PROTEIN NEGATIVE (NEGATIVE); URINE UROBILINOGEN 0.2-1.0 mg/dL (0.2-1.0)
[2018-09-14] MEDS ORDERED: Albuterol-Ipratrop 3 mg / 0.5 (3 ml) UD ONE (02:33)
[2018-09-14 02:35] LABS: ALB/GLOB RATIO 1.4 (1.0-2.1); ALBUMIN 3.6 g/dL (3.5-5.0); ALT/SGPT 43 U/L (21-72); AST/SGOT 27 U/L (17-59); BLOOD UREA NITROGEN 28 mg/dl (9-20); CALCIUM 8.8 mg/dL (8.4-10.2); GFR NON-AFRICAN AMERICAN > 60
[2018-09-14 02:41] LABS: ACETAMINOPHEN < 10.0 ug/ml (10.0-30.0); SALICYLATE < 1.0 mg/dl
[2018-09-14 03:33] LABS: BARBITURATES, UR NEGATIVE (NEGATIVE); BENZODIAZEPINES, UR NEGATIVE (NEGATIVE); OPIATES, UR NEGATIVE (NEGATIVE); PHENCYCLIDINE, UR NEGATIVE (NEGATIVE)
[2018-09-14] MEDS ORDERED: Magnesium Hydroxide Susp 30 ml UD PO PRN (04:55)
[2018-09-14] MEDS ORDERED: Bismuth Subsalicylate 262 mg/15 ml Sus (240 ml) PO PRN (04:55)
[2018-09-14] MEDS ORDERED: Alum-Mag Hydrox-Simethicone Susp (30 mL) PO PRN (04:55)
--- NOTE | 2018-09-14 05:04 | PCM.BM ---
<Kong Houston - Last Filed: 09/14/18 05:02> Treatment Plan Problems - Problems identified on initial assessmt Suicidal Ideation Date Initiated: 09/14/18 Time Initiated: 05:02 Assessment reference: NA Status: Active Priority: 1 Altered Sleep Patterns Date Initiated: 09/14/18 Time Initiated: 05:02 Assessment reference: NA Status: Active Priority: 2 Self Care Deficit Date Initiated: 09/14/18 Time Initiated: 05:03 Assessment reference: NA Status: Active Priority: 3 Social Isolation Date Initiated: 09/14/18 Time Initiated: 05:03 Assessment reference: NA Status: Active Priority: 4 Feelings of Worthlessness Date Initiated: 09/14/18 Time Initiated: 05:03 Assessment reference: NA Status: Active Priority: 5 Hopelessness/Helplessness Date Initiated: 09/14/18 Time Initiated: 05:03 Assessment reference: NA Status: Active Priority: 6 Treatment assets and liabiliti Patient Assests: adapts well, cooperative, ADL independent, negotiates basic needs, cognitively intact Patient Liabilities: live alone, financial problems, poor support system, substance abuse - Milieu Protocol Maintain good personal hygiene: daily Encourage regular showers, daily Remind patient to perform daily oral care, daily Assist patient to perform ADL's Conduct patient checks and document Observation sheet: Q15 minutes Maintain personal safety: every shift Educate patient to report safety concerns to staff, every shift Monitor environment for contraband/sharps Medication safety: Monitor for expected outcome, potential side effects: every shift, Assess barriers to learning: every shift, Assess readiness for medication education: every shift <Olimpia Beach - Last Filed: 09/14/18 13:25> - Diagnosis (1) Major depressive disorder Status: Acute Interventions: Medication management, Individual and group therapy, Psychoeducation 09/14/18 13:25 <Sury Desai - Last Filed: 09/16/18 14:16> Family Contact Family involvement: No known Family/SO - Goals for Treatment Patient goals for treatment: Pt will improve overall mood. Pt will be free of suicide ideation and thoughts. Pt will comply with prescribed medication. Pt will attend clinical and activity groups. Pt will develop coping skills to cope with his depression and homelessness. Pt will develop strategies for thought distraction when ruminating on the past. Discharge/Continuing Care - Education Needs Education Needs: Patient Medication, Patient Diagnosis/Disease Process, Patient Coping Skills, Patient Community resources, Patient Activities of Daily Living, Patient Health Practices/Safety, Patient Personal Hygiene/Grooming, Patient Aftercare Safety Plan - Discharge Discharge Criteria: Tolerates medication w/o severe side effects, Free of Suicidal thoughts, Normal sleep pattern, Ability to care for self, Reduction of target symptoms Discharge to:: [facility] - Additional Comments 09/16/18 14:12 Pt discussed in team meeting. Pt invited to attend team meeting by RNChristin and refused. Pt's progress and bx on the unit reviewed and discussed. Pt is visible on the unit interacting with peers and in the dining room watching television. Pt informed of scheduled discharge tomorrow, september 17 and dissatisfied as pt would like to continue his stay in the hospital due to homelessness. Pt is homeless and refuses to stay at a custodial. Pt refusing mental health follow up appointment. This morning, pt refused psychotropic medi cations stating to the RN "I'm leaving anyway." Pt presents with no acute symptoms and pt's hospitalization is secondary gain. Pt was evaluated by attending psychiatrist earlier in the AM. SW will continue to follow case. - Treatment Team Participation Discussed with Family/SO: No (Pt reported no family contact) Was Patient/Family/SO present at Treatment Team Meeting: No (Pt refused to attend team meeting)
--- NOTE | 2018-09-14 08:32 | RAD ---
Date of service: 09/14/2018 HISTORY: sob COMPARISON: No prior. TECHNIQUE: Chest PA and lateral views FINDINGS: LUNGS: COPD related hyperinflation reiterated. No acute airspace disease identified bilaterally. PLEURA: No significant pleural effusion identified. No pneumothorax apparent. CARDIOVASCULAR: No aortic atherosclerotic calcification present. Normal cardiac size. No pulmonary vascular congestion. OSSEOUS STRUCTURES: No significant abnormalities. VISUALIZED UPPER ABDOMEN: Normal. OTHER FINDINGS: None. IMPRESSION: Stable COPD pattern. No acute infiltrate, pleural effusion or pneumothorax identified bilaterally. No pulmonary vascular congestion.
--- NOTE | 2018-09-14 12:57 | PCM.PSYCH ---
Initial Psychiatric Evaluation - Initial Psychiatric Evaluation Type of Admission: Voluntary Legal Status: Capacity Chief Complaint (in patient's own words): Depression Patient's Reaction to Hospitalization: HPI: 68 yo male w/ h/o depression, presents w/ worsening depression, anxiety, suicidal ideation w/ plan to overdose and appetite disturbances. He denies acute AH/VH/paranoia/delusions. He has not been compliant with psychiatric treatment or medications. He is able to contract for safety at this time. PPHx: H/o prior admissions; admitted to [facility] 12/2016 PMHx: COPD; now complaining of excessive urination at night ALL: NKDA SHx: Homeless; smokes marijuana; reports drinking occasionally, but does not quantify how much; also reports that he smokes a few cigarettes at times; declined smoking cessation; from [place] Current Medications: Active Medications Generic Name Dose Route Start Last Admin Trade Name Freq PRN Reason Stop Dose Admin Acetaminophen 650 mg 09/14/18 04:55 Tylenol 325mg Tab PO Q4 PRN Pain, moderate (4-7) Al Hydrox/Mg Hydrox/Simethicone 30 ml 09/14/18 04:55 Maalox Plus 30 Ml PO Q4 PRN Dyspepsia Bismuth Subsalicylate 524 mg 09/14/18 04:55 Pepto-Bismol PO Q4 PRN Diarrhea Fluticasone Propionate 1 spr 09/14/18 13:00 Flonase RUPESH DAILY [facility] 1 unit 09/14/18 13:00 Patient's Own Medication PO QID [facility] Lorazepam 0.5 mg 09/14/18 04:55 Ativan PO 09/28/18 04:56 HS PRN Insomnia Lorazepam 0.5 mg 09/14/18 04:55 Ativan PO 09/28/18 04:56 Q6 PRN Anixety/Agitation Magnesium Hydroxide 30 ml 09/14/18 04:55 Milk Of Magnesia PO HS PRN Constipation Sertraline HCl 50 mg 09/14/18 13:00 Zoloft PO DAILY [facility] Past Psychiatric History - Past Psychiatric History Previous Treatment History: Inpatient Pertinent Medical Hx (Current Medical&Sleep Prob, Allergies): Allergies Allergy/AdvReac Type Severity Reaction Status Date / Time No Known Allergies Allergy Verified 02/18/18 15:20 Albuterol/Ipratropium [Combivent Respimat] 1 puff IH Q4 PRN 08/29/17 Fluticasone Propionate [Flonase] 1 spray RUPESH DAILY 09/14/18 Review of Systems - Psychiatric Psychiatric: As Per HPI, Abnormal Sleep Pattern, Anhedonia, Anxiety, Change in Appetite, Depression, Hopelessness, Irritability, Suicidal Ideation Mental Status Examination - Personal Presentation Personal Presentation: Looks stated age - Affect Affect: Constricted, Depressed - Motor Activity Motor Activity: Calm - Reliability in Providing Information Reliability in Providing Information: Fair - Speech Speech: Coherent - Mood Mood: Depressed, Anxious - Formal Thought Process Formal Thought Process: No Impairment - Hallucinations/Delusions Additional comments: No AH/VH/paranoia/delusions - Obsessions/Compulsions Obsessions: No Compulsions: No - Cognitive Functions Orientation: Person, Place, Situation, Time Sensorium: Alert Estimate of Intelligence: Average Judgement: Intact, as evidence by: Insight regarding need for hospitalization Memory: Recent intact, as evidence by: Ability to recall events of the day - Risk Risk: Suicidal - Strength & Assets Inventory Strength & Assets Inventory: Cooperative - Limitations Limitations: Other (Homelessness, Poverty) DSM 5 DX - DSM 5 DSM 5 Diagnosis: Major Depressive Disorder - Recommended/Plan of Treatment Treatment Recommendations and Plan of Treatment: Major Depressive Disorder -Individual and group therapy -Psychoeducation -Start Zoloft -Medicine consult -Disposition planning Projected ELOS: 4-7 days Discharge Plan and Discharge Criteria: Discharge when patient is psychiatrically stable - Smoking Cessation Smoking Cessation Initiated: No Reason for not providing: Patient declined
--- NOTE | 2018-09-14 13:30 | CARD ---
APPROVED REPORT Date of service: 09/14/2018 EKG Measurement Heart [id number] <Conclusion> Normal sinus rhythm Normal ECG
[2018-09-14] MEDS: COMBIVENT RESPIMAT PO SCH ×3 (16:28→21:14)
--- NOTE | 2018-09-14 19:41 | CP.PCM.CON ---
History of Present Illness - History of Present Illness History of Present Illness: 68 yo male with history of COPD admitted to psyche unit because of worsening depression Review of Systems - Review of Systems All systems: reviewed and no additional remarkable complaints except (aside from those mentioned above, 12 point system review were negative by me) Past Patient History - Infectious Disease Hx of Infectious Diseases: None - Past Social History Alcohol: None Drugs: Denies - CARDIAC Hx Atrial Fibrillation: No Hx Cardia Arrhythmia: No Hx Congestive Heart Failure: No Hx Hypercholesterolemia: No Hx Hypertension: No Hx Mitral Valve Prolapse: No Hx Pacemaker: No Hx Peripheral Edema: No - PULMONARY Hx Asthma: Yes Hx Bronchitis: No Hx Chronic Obstructive Pulmonary Disease (COPD): No Hx Emphysema: No Hx Pneumonia: Yes Hx Pulmonary Embolism: No Hx Sleep Apnea: No - NEUROLOGICAL Hx Alzheimer's Disease: No Hx Dementia: No Hx Migraine: No Hx Multiple Sclerosis: No Hx Parkinson's Disease: No Hx Seizures: No Hx Transient Ischemic Attacks (TIA): No - HEENT Other/Comment: wears corrective eye wear - RENAL Hx Chronic Kidney Disease: No Hx Kidney Stones: No - ENDOCRINE/METABOLIC Hx Hyperthyroidism: No Hx Hypothyroidism: No - HEMATOLOGICAL/ONCOLOGICAL Hx Anemia: No Hx Human Immunodeficiency Virus (HIV): No Hx Sickle Cell Disease: No - INTEGUMENTARY Hx Dermatological Problems: No Hx Basil Cell: No Hx Allen: No Hx Cellulitis: No Hx Eczema: No Hx Melanoma: No Hx Psoriasis: No Hx Squamous Cell: No - MUSCULOSKELETAL/RHEUMATOLOGICAL Hx Arthritis: No Hx Fractures: No Hx Osteoporosis: No Hx Rheumatoid Arthritis: No - GASTROINTESTINAL Hx Crohn's Disease: No Hx Diverticulitis: No Hx Gall Bladder Disease: No Hx Gastritis: No Hx Pancreatitis: No - GENITOURINARY/GYNECOLOGICAL Hx Sexually Transmitted Disorders: No - PSYCHIATRIC Hx Anxiety: Yes Hx Bipolar Disorder: No Hx Depression: Yes Hx Schizophrenia: No - SURGICAL HISTORY Hx Appendectomy: Yes (1979) Hx Carotid Endarterectomy: No Hx Cholecystectomy: No Hx Coronary Artery Bypass Graft: No Hx Coronary Stent: No Hx Tonsillectomy: No - ANESTHESIA Hx Anesthesia: Yes Hx Anesthesia Reactions: No Hx Malignant Hyperthermia: No Meds Allergies/Adverse Reactions: Allergies Allergy/AdvReac Type Severity Reaction Status Date / Time No Known Allergies Allergy Verified 02/18/18 15:20 - Medications Medications: Current Medications Acetaminophen (Tylenol 325mg Tab) 650 mg PO Q4 PRN PRN Reason: Pain, moderate (4-7) Al Hydrox/Mg Hydrox/Simethicone (Maalox Plus 30 Ml) 30 ml PO Q4 PRN PRN Reason: Dyspepsia Bismuth Subsalicylate (Pepto-Bismol) 524 mg PO Q4 PRN PRN Reason: Diarrhea Fluticasone Propionate (Flonase) 1 spr RUPESH DAILY [facility] Last Admin: 09/14/18 16:28 Dose: 1 spr Home Med (Patient's Own Medication) 1 unit PO QID [facility] Last Admin: 09/14/18 16:29 Dose: 1 unit Lorazepam (Ativan) 0.5 mg PO HS PRN PRN Reason: Insomnia Stop: 09/28/18 04:56 Lorazepam (Ativan) 0.5 mg PO Q6 PRN PRN Reason: Anixety/Agitation Stop: 09/28/18 04:56 Magnesium Hydroxide (Milk Of Magnesia) 30 ml PO HS PRN PRN Reason: Constipation Sertraline HCl (Zoloft) 50 mg PO DAILY [facility] Last Admin: 09/14/18 16:29 Dose: 50 mg Physical Exam - Constitutional Appears: No Acute Distress - Head Exam Head Exam: ATRAUMATIC - Eye Exam Eye Exam: absent: Scleral icterus - ENT Exam ENT Exam: Mucous Membranes Moist - Neck Exam Neck exam: Negative for: Meningismus - Respiratory Exam Respiratory Exam: absent: Rales, Rhonchi, Wheezes, Respiratory Distress - Cardiovascular Exam Cardiovascular Exam: REGULAR RHYTHM, +S1, +S2 - GI/Abdominal Exam GI & Abdominal Exam: Soft. absent: Tenderness - Rectal Exam Rectal Exam: Deferred - Extremities Exam Extremities exam: Negative for: pedal edema - Neurological Exam Neurological exam: Alert, Oriented x3 - Psychiatric Exam Psychiatric exam: Normal Affect - Skin Skin Exam: Dry, Intact Results - Vital Signs Recent Vital Signs: Last Vital Signs Temp 0.8 F L 09/14/18 16:07 Pulse 76 09/14/18 16:07 Resp 18 09/14/18 16:07 BP 112/74 09/14/18 16:07 Pulse Ox 100 09/14/18 05:09 - Labs Result Diagrams: 09/14/18 02:11 09/14/18 02:11 Labs: Laboratory Results - last 24 hr 09/14/18 09/14/18 09/14/18 02:11 02:11 02:11 WBC 7.2 RBC 4.81 Hgb 13.3 Hct 40.9 MCV 84.9 MCH 27.7 MCHC 32.6 L RDW 13.9 Plt Count 201 MPV 8.9 Neut % (Auto) 69.9 Lymph % (Auto) 15.4 L [place] % (Auto) 12.2 H Eos % (Auto) 1.8 Baso % (Auto) 0.7 Neut # (Auto) 5.1 Lymph # (Auto) 1.1 [place] # (Auto) 0.9 H Eos # (Auto) 0.1 Baso # (Auto) 0.1 Sodium 138 Potassium 3.9 Chloride 102 Carbon Dioxide 27 Anion Gap 13 BUN 28 H Creatinine 0.9 Est GFR ( Amer) > 60 Est GFR (Non-Af Amer) > 60 Random Glucose 95 Calcium 8.8 Total Bilirubin 0.3 AST 27 ALT 43 Alkaline Phosphatase 117 Troponin I Total Protein 6.0 L Albumin 3.6 Globulin 2.5 Albumin/Globulin Ratio 1.4 Urine Color Urine Clarity Urine pH Ur Specific Pierz Urine Protein Urine Glucose (UA) Urine Ketones Urine Blood Urine Nitrate Urine Bilirubin Urine Urobilinogen Ur Leukocyte Esterase Urine Microscopic WBC Ur Squamous Epith Cells Salicylates < 1.0 Urine Opiates Screen Urine Methadone Screen Acetaminophen < 10.0 L Ur Barbiturates Screen Ur Phencyclidine Scrn Ur Amphetamines Screen U Benzodiazepines Scrn U Oth Cocaine Metabols U Cannabinoids Screen Alcohol, Quantitative < 10 09/14/18 09/14/18 09/14/18 02:16 02:16 02:45 WBC RBC Hgb Hct MCV MCH MCHC RDW Plt Count MPV Neut % (Auto) Lymph % (Auto) [place] % (Auto) Eos % (Auto) Baso % (Auto) Neut # (Auto) Lymph # (Auto) [place] # (Auto) Eos # (Auto) Baso # (Auto) Sodium Potassium Chloride Carbon Dioxide Anion Gap BUN Creatinine Est GFR ( Amer) Est GFR (Non-Af Amer) Random Glucose Calcium Total Bilirubin AST ALT Alkaline Phosphatase Troponin I < 0.0120 Total Protein Albumin Globulin Albumin/Globulin Ratio Urine Color Yellow Urine Clarity Clear Urine pH 5.0 Ur Specific Pierz 1.019 Urine Protein Negative Urine Glucose (UA) Neg Urine Ketones Negative Urine Blood Negative Urine Nitrate Negative Urine Bilirubin Negative Urine Urobilinogen 0.2-1.0 Ur Leukocyte Esterase Neg Urine Microscopic WBC < 1 Ur Squamous Epith Cells < 1 Salicylates Urine Opiates Screen Negative Urine Methadone Screen Negative Acetaminophen Ur Barbiturates Screen Negative Ur Phencyclidine Scrn Negative Ur Amphetamines Screen Negative U Benzodiazepines Scrn Negative U Oth Cocaine Metabols Negative U Cannabinoids Screen Positive H Alcohol, Quantitative Assessment & Plan (1) Depression Status: Acute Comment: psyche is managing (2) COPD (chronic obstructive pulmonary disease) Status: Acute Comment: stable. Albuterol inhaler 2 puffs q 4hrs prn Attending/Attestation - Attestation I have personally seen and examined this patient.: Yes I have fully participated in the care of the patient.: Yes I have reviewed all pertinent clinical information: Yes Notes (Text): 09/15/18 12:11 Patient seen and examined with resident during [facility] for hypoglycemia. Case discussed and agreed with assessment. Patient would need titration of his insulin requirements
[2018-09-14] MEDS ORDERED: Patient's Own Med (Albuterol/Ipratropium [Combivent Respimat] 1 PUFF) IH PRN (19:43)
[2018-09-15 06:57] LABS: IRON 68 ug/dL (49-181)
[2018-09-15 07:06] LABS: % IRON SATURATION 17 % (20-55); TOTAL IRON BINDING CAPACITY 396 ug/dL (250-450)
[2018-09-15 07:24] LABS: FERRITIN 12.4 ng/Ml (17.9-464)
[2018-09-15] MEDS: COMBIVENT RESPIMAT PO SCH ×5 (08:37→21:59)
--- NOTE | 2018-09-15 09:26 | PCM.PYCHPN ---
Psychiatric Progress Note - Psychiatric Progress Note Patient seen today, length of contact: Pt evaluated, case discussed w/ team, chart reviewed Patient Chief Complaint: Depression Problems Identified/Issues Discussed: Patient reports that he continues to feel depressed and irritable. He reports sleep/appetite disturbances. No adverse effects to medications reported. He denies acute AH/VH/SI/HI. Medication Change: No Medical Record Reviewed: Yes Consults ordered or reviewed: Medicine consult Mental Status Examination - Cognitive Function Orientation: Person, Place, Situation, Time - Mood Mood: Depressed, Anxious - Affect Affect: Constricted, Depressed - Formal Thought Process Formal Thought Process: No Impairment Psychotic Thoughts and Behaviors: No AH/VH/paranoia/delusions - Suicidal Ideation Suicidal Ideation: No - Homicidal Ideation Homicidal Ideation: No Goal/Treatment Plan - Goal/Treatment Plan Need for Continued Stay: Remain at risks for inpatient hospitalization, Severe depression anxiety Progress Toward Problem(s) and Goals/Treatment Plan: Major Depressive Disorder -Individual and group therapy -Psychoeducation -Continue Zoloft -Medicine consult -Disposition planning
[2018-09-16] MEDS: COMBIVENT RESPIMAT PO SCH ×5 (08:58→22:14)
--- NOTE | 2018-09-16 10:30 | PCM.PYCHPN ---
Psychiatric Progress Note - Psychiatric Progress Note Patient seen today, length of contact: Pt evaluated, case discussed w/ team, chart reviewed Patient Chief Complaint: Depression Problems Identified/Issues Discussed: Patient reports that his mood is improving. He feels less depressed and less irritable. He reports improved sleep and appetite. No adverse effects to medications reported. He denies acute AH/VH/SI/HI. Medication Change: No Medical Record Reviewed: Yes Consults ordered or reviewed: Medicine consult Mental Status Examination - Cognitive Function Orientation: Person, Place, Situation, Time Memory: Intact - Mood Mood: Depressed, Anxious - Affect Affect: Constricted - Formal Thought Process Formal Thought Process: No Impairment Psychotic Thoughts and Behaviors: No AH/VH/paranoia/delusions - Suicidal Ideation Suicidal Ideation: No - Homicidal Ideation Homicidal Ideation: No Goal/Treatment Plan - Goal/Treatment Plan Need for Continued Stay: Remain at risks for inpatient hospitalization, Severe depression anxiety Progress Toward Problem(s) and Goals/Treatment Plan: Major Depressive Disorder -Individual and group therapy -Psychoeducation -Continue Zoloft -Medicine consult -Disposition planning- patient is improving clinically; will likely discharge tomorrow
[2018-09-17 06:27] VITALS: BP 123/83; PULSE 91; RESP 18; TEMP 97.1
[2018-09-17] MEDS: COMBIVENT RESPIMAT PO SCH (08:06)
--- NOTE | 2018-09-17 08:36 | PCM.PYCHDC ---
Mental Status Examination - Mental Status Examination Orientation: Person, Place, Situation, Time Memory: Intact Mood: Neutral Affect: Broad Speech: Appropriate Attention: WNL Concentration: WNL Formal Thought Process: No Impairment Description of patient's judgement and insight: Fair I/J Psychotic Thoughts and Behaviors: No AH/VH/paranoia/delusions Suicidal Ideation: No Current Homicidal Ideation?: No Discharge Summary - Discharge Note Reason for Hospitalization: HPI: 68 yo male w/ h/o depression, presents w/ worsening depression, anxiety, suicidal ideation w/ plan to overdose and appetite disturbances. He denies acute AH/VH/paranoia/delusions. He has not been compliant with psychiatric treatment or medications. He is able to contract for safety at this time. PPHx: H/o prior admissions; admitted to [facility] 12/2016 PMHx: COPD; now complaining of excessive urination at night ALL: NKDA SHx: Homeless; smokes marijuana; reports drinking occasionally, but does not quantify how much; also reports that he smokes a few cigarettes at times; declined smoking cessation; from [place] Consultations:: List each consultation separately and include: 1. Reason for request. 2. Findings. 3. Follow-up Consultations: Medicine consult Summary of Hospital Course include:: 1. Description of specific treatment plan utilized for patients during their course of treatmen. 2. Summarize the time- course for resolution of acute symptoms and/or regressed behaviors. 3. Describe issues identified and worked on during hospitalization. 4. Describe medication utilized. 5. Describe medical problems identified and treated. 6. Reassessment of suicide risk Summary of Hospital Course: Patient was admitted to the psychiatry unit. Individual and group therapy were provided. Patient was stabilized on Zoloft 50 mg PO Daily. He reports improvement in mood. No acute AH/VH/SI/HI. Patient is psychiatrically stable for discharge at this time. - Diagnosis (1) Major depressive disorder Current Visit: Yes Status: Acute - Final Diagnosis (DSM 5) Condition upon Discharge: STABLE DSM 5: Major Depressive Disorder Disposition: HOME/ ROUTINE Follow-up Treatment Plan: Discharge patient; patient currently refusing psychiatric follow-up; psychoeducation provided on the importance of compliance with treatment and medications Prescriptions/Medication Reconciliation: Albuterol/Ipratropium [Combivent Respimat] 1 puff IH Q4 PRN #1 inhaler PRN Reason: Shortness Of Breath Fluticasone Propionate [Flonase] 1 spray RUPESH DAILY #1 bottle Sertraline [Zoloft] 50 mg PO DAILY #30 tab - Smoking Cessation Smoking Cessation Medication prescribed: No Reason for not providing: Patient declined - Antipsychotic Medications Pt discharged on 2 or more routine antipsychotic medications: No
== END 2018-09-17 10:35 | disposition home or self-care (01) | DRG 881 ==
LOC: H.ER 00:36 → H.ERHOLD 02:43 → H.STEP 04:52
PROVIDERS: ADMIT Psychiatry & Neurology Psychiatry; ATTEND Psychiatry & Neurology Psychiatry
PROC: GZHZZZZ Group Psychotherapy (ICD-10-PCS; principal; 2018-09-14)
PROC: GZ58ZZZ Individual Psychotherapy, Cognitive-Behavioral (ICD-10-PCS; 2018-09-14)
DX: F32.9 Major depressive disorder, single episode, unspecified (principal); R45.851 Suicidal ideations; F12.90 Cannabis use, unspecified, uncomplicated; F41.9 Anxiety disorder, unspecified; E16.2 Hypoglycemia, unspecified; R35.0 Frequency of micturition; J44.9 Chronic obstructive pulmonary disease, unspecified; Z91.19 Patient's noncompliance with other medical treatment and regimen; Z59.0 Homelessness; Z87.01 Personal history of pneumonia (recurrent)